=== PATIENT | female | born 1960 | race Caucasian/White ===

== ENCOUNTER → 2016-12-28 | Outpatient (CLI) | payer OTHER ==
[~2016-12-28] MED LIST: FURO-85 PO; GLIP-199 PO; IBUP-1050 PO; LOSA50TA6 PO; METF-384 PO; SIMV40TA2 PO; SITA100T3 PO
[2016-12-28 12:31] LABS: BASO % 0.3 %; BASO ABS # 0.02 K/uL (0-0.2); COMPLETE YES; HEMATOCRIT 44.6 % (37-47); IG% 0.3 %; LYMPH % 33.7 %; LYMPH ABS # 2.18 K/uL (1.2-3.4); MEAN CORPUSCULAR HEMOGLOBIN 30.8 pg (25-34); MEAN PLATELET VOLUME 9.8 fL (7.4-10.4); MONO % 5.6 %; NEUT % 58.1 %; PLATELET COUNT 164 K/uL (130-400); RED BLOOD COUNT 5.07 M/uL (4.2-5.4); WHITE BLOOD COUNT 6.47 K/uL (4.8-10.8)
[2016-12-28 12:56] LABS: ALT/SGPT 26 U/L (12-78); AST/SGOT 12 U/L (15-37); BLOOD UREA NITROGEN 14 mg/dl (7-18); BUN/CREATININE RATIO 15.6 (10-20); CALCIUM 8.8 mg/dl (8.5-10.1); CARBON DIOXIDE 26 mmol/L (21-32); CHLORIDE 103 mmol/L (98-107); CHOLESTEROL 163 mg/dl (0-200); CREATININE 0.92 mg/dl (0.60-1.20); GLUCOSE 286 mg/dl (70-99); POTASSIUM 4.2 mmol/L (3.5-5.1); SODIUM 139 mmol/L (136-145); TRIGLYCERIDES 199 mg/dl (0-150); VERY LOW DENSITY LIPOPROT CALC 40 mg/dl
[2016-12-28 13:08] LABS: ALKALINE PHOSPHATASE 73 U/L (45-117); CHOLESTEROL/HDL RATIO 2.4; HDL CHOLESTEROL 67 mg/dl; LDL CHOLESTEROL CALCULATED 56 mg/dl
[2016-12-28 13:10] LABS: ESTIMATED AVERAGE GLUCOSE 272 mg/dl; HA1C FLAG Normal (Normal)
== END | disposition home or self-care (01) ==
LOC: C.LABBFT 11:09
PROVIDERS: ATTEND Internal Medicine
DX: Z00.00 Encounter for general adult medical examination without abnormal findings (principal); E11.9 Type 2 diabetes mellitus without complications; I10 Essential (primary) hypertension; E78.00 Pure hypercholesterolemia, unspecified; R60.9 Edema, unspecified; K62.5 Hemorrhage of anus and rectum

== ENCOUNTER → 2017-01-05 | Outpatient (CLI) | payer OTHER ==
--- NOTE | 2017-01-05 10:55 | DIAGNOSTIC IMAGING REPORT ---
EXAMINATION: PELVIC ULTRASOUND CLINICAL HISTORY: N95.0 PELVIC PAIN. BLEEDING. COMPARISON STUDY: None FINDINGS: The uterus measured 9.7 cm. 2 small uterine fibroids measuring 3.3 and 2.9 cm.. The endometrial stripe measured moderately prominent at 10 mm. The right ovary measured 2.2 cm normal vascular flow. The left ovary measured not identified possibly due to overlying bowel content. There is no ultrasonographic evidence of ovarian torsion. It should be noted that ovarian torsion can be present with normal Doppler ultrasonographic findings. There was no evidence of pathologic free pelvic fluid. IMPRESSION: 1. Fibroid-type uterus.. 2. Moderate prominence of the endometrium at 10 mm. Given the patient's age, diagnostic considerations must include endometrial hyperplasia versus neoplasm. 3. Otherwise negative study Electronically signed by: Dimitri Bansal M.D. 01/05/2017 10:54 AM Dictated Date/Time: 01/05/2017 10:52 AM
== END | disposition home or self-care (01) ==
LOC: C.ULTR 09:42
PROVIDERS: ATTEND Internal Medicine
DX: N95.0 Postmenopausal bleeding (principal); D25.9 Leiomyoma of uterus, unspecified

== ENCOUNTER → 2017-05-26 | Outpatient (CLI) | payer OTHER | END | disposition home or self-care (01) | LOC: C.PAPS 11:55 | PROVIDERS: ATTEND Obstetrics & Gynecology | DX: N95.0 Postmenopausal bleeding (principal) ==

== ENCOUNTER → 2017-06-11 | Outpatient (CLI) | payer OTHER ==
[2017-06-11 18:43] LABS: ALKALINE PHOSPHATASE 73 U/L (45-117); ALT/SGPT 32 U/L (12-78); AST/SGOT 20 U/L (15-37); BLOOD UREA NITROGEN 15 mg/dl (7-18); BUN/CREATININE RATIO 14.6 (10-20); CALCIUM 9.6 mg/dl (8.5-10.1); CARBON DIOXIDE 30 mmol/L (21-32); CHLORIDE 103 mmol/L (98-107); GLUCOSE 352 mg/dl (70-99); POTASSIUM 4.8 mmol/L (3.5-5.1); SODIUM 140 mmol/L (136-145)
[2017-06-11 18:54] LABS: BETA-HYDROXYBUTYRATE 1.73 mg/dL (0.2-2.81)
[2017-06-12 06:34] LABS: ESTIMATED AVERAGE GLUCOSE 226 mg/dl; HA1C FLAG Normal (Normal)
== END | disposition home or self-care (01) ==
LOC: C.LABBFT 10:33
PROVIDERS: ATTEND Internal Medicine
DX: E11.9 Type 2 diabetes mellitus without complications (principal)

== ENCOUNTER 2017-07-12 08:35 | Day surgery (SDC) | payer OTHER ==
[2017-07-02 13:31] VITALS: BMI 45.0
--- NOTE | 2017-07-02 13:59 | PAT Medication Instructions ---
Service Date Jul 02, 2017. Current Home Medication List Furosemide (Lasix), 20 MG PO QAM Glipizide (Glipizide Er), 20 TAB PO QAM Ibuprofen (Advil), 200 MG PO PRN Losartan Potassium (Cozaar), 50 MG PO QAM Metformin Hcl (Glucophage), 1,000 MG PO BID Simvastatin (Zocor), 40 MG PO QPM Sitagliptin Phosphate (Januvia), 100 MG PO QAM Medication Instructions For Your Scheduled Surgery - Check with surgeon for instructions: Ibuprofen (Advil), 200 MG PO PRN - Hold the following medications 48 hours prior to surgery: Metformin Hcl (Glucophage), 1,000 MG PO BID - Hold the following medications the morning of surgery: Furosemide (Lasix), 20 MG PO QAM Glipizide (Glipizide Er), 20 TAB PO QAM Losartan Potassium (Cozaar), 50 MG PO QAM Sitagliptin Phosphate (Januvia), 100 MG PO QAM - Take the following medications as scheduled the night before surgery: Simvastatin (Zocor), 40 MG PO QPM If you have any questions please call us at [phone] or [phone] or [phone]
[2017-07-02 14:55] LABS: BASO % 0.1 %; BASO ABS # 0.01 K/uL (0-0.2); COMPLETE YES; EOS % 1.7 %; HEMATOCRIT 43.5 % (37-47); IG% 0.3 %; LYMPH % 26.6 %; LYMPH ABS # 2.05 K/uL (1.2-3.4); MEAN CELL VOLUME 90.1 fL (80-100); MEAN CORPUSCULAR HEMOGLOBIN 30.6 pg (25-34); MEAN PLATELET VOLUME 9.7 fL (7.4-10.4); MONO % 5.2 %; NEUT % 66.1 %; PLATELET COUNT 189 K/uL (130-400); RED BLOOD COUNT 4.83 M/uL (4.2-5.4)
[2017-07-02 14:58] LABS: URINE APPEARANCE CLEAR (CLEAR); URINE BILIRUBIN NEG (NEG); URINE COLOR YELLOW; URINE NITRITE NEG (NEG); URINE SPECIFIC GRAVITY 1.027 (1.000-1.030); UROBILINOGEN NEG (NEG)
[2017-07-02 15:03] LABS: MANUAL MICROSCOPIC REQUIRED? NO; REVIEW REQ? NO
[2017-07-02 15:50] LABS: BUN/CREATININE RATIO 16.3 (10-20); CALCIUM 9.3 mg/dl (8.5-10.1); CREATININE 0.93 mg/dl (0.60-1.20); POTASSIUM 4.6 mmol/L (3.5-5.1)
[2017-07-03 06:56] LABS: ESTIMATED AVERAGE GLUCOSE 226 mg/dl; HA1C FLAG Normal (Normal)
[~2017-07-12] VITALS: Ht 154.9 cm; Wt 109.0 kg
[~2017-07-12 08:35] MED LIST changes: +LACTATED RINGER'S 1000ML 1,000 ML IV SCH
[2017-07-12 09:01] VITALS: BP 140/71; PULSE 96; TEMP 36.9; O2SAT 100; Ht 154.9 cm; Wt 109.0 kg
[2017-07-12] MEDS ORDERED: FENTANYL CITRATE INJ 50 MCG/1 ML 2 ML VIAL ONE (09:39)
[2017-07-12] MEDS ORDERED: MIDAZOLAM HCL 1 MG/ML 2ML VIAL ONE (09:39)
[2017-07-12] MEDS ORDERED: DEXAMETHASONE SOD INJ 4 MG/ML VIAL ONE (09:39)
[2017-07-12] MEDS ORDERED: ONDANSETRON INJ 2 MG/ML 2 ML VIAL ONE (09:39)
[2017-07-12] MEDS ORDERED: LIDOCAINE HCL 2% 2 ML VIAL (20MG/ML) ONE (09:39)
[2017-07-12] MEDS ORDERED: PROPOFOL IV EMULSION 10 MG/ML 20 ML VIAL IV ONE (09:39)
--- NOTE | 2017-07-12 09:39 | History & Physical Bridge Note ---
H&P Re-Evaluation Bridge Note: I have examined the patient, reviewed the History & Physical and in the interval since the performance of the History & Physical I have noted the following changes of clinical significance: No changes noted
[2017-07-12] MEDS ORDERED: ONDANSETRON INJ 2 MG/ML 2 ML VIAL IV PRN ×2 (10:15→11:00)
[2017-07-12] MEDS ORDERED: EpHEDrine SULFATE INJ 50 MG/ML AMP IV PRN (10:15)
[2017-07-12] MEDS ORDERED: FENTANYL CITRATE INJ 50 MCG/1 ML 2 ML VIAL IV PRN (10:15)
[2017-07-12] MEDS ORDERED: ATROPINE SULFATE 0.1 MG/ML 5ML SYR IV PRN (10:15)
[2017-07-12] MEDS ORDERED: METOCLOPRAMIDE HCL INJ 5 MG/ML 2 ML VIAL ONE (10:20)
[2017-07-12] MEDS ORDERED: SODIUM CHLORIDE 0.9% 1000ML 1,000 ML IV SCH (10:48)
--- NOTE | 2017-07-12 10:49 | [facility] Post Operative Brief Note ---
Immediate Operative Summary Operative Date Jul 12, 2017. Pre-Operative Diagnosis Postmenopausal bleeding Post-Operative Diagnosis Postmenopausal bleeding Procedure(s) Performed Hysteroscopy,Dilation and Currettage, Polypectomy Surgeon Dr. Linh Guardado DO Utility System Operator Surgeon(s) None Estimated Blood Loss 5ml Findings Multiple endometrial polyps. Uterus sounded to 9cm. Specimens A. Endocervical currettings B. Endometrial polyp Drains bladder drained prior to procedure Anesthesia general Complication(s) None Disposition Recovery Room / PACU
--- NOTE | 2017-07-12 10:51 | Discharge Instructions ---
Discharge Instructions Date of Service Jul 12, 2017. Visit Reason for Visit: Post Menopausal Bleeding Discharge Discharge Diagnosis / Problem: endometrial polyps Discharge Goals Goal(s): Diagnostic testing, Therapeutic intervention Activity Recommendations Activity Limitations: per Instructions/Follow-up section Anesthesia . Post Anesthesia Instructions: If you have had General Anesthesia or IV Sedation: * Do not drive today. * Resume driving when surgeon permits. * Do not make important decisions or sign legal documents today. * Call surgeon for: 1. Temperature elevations greater than 101 degrees F. 2. Uncontrollable pain. 3. Excessive bleeding. 4. Persistent nausea and vomiting. 5. Medication intolerance (nausea, vomiting or rash). * For nausea and vomiting use only clear liquids such as: tea, soda, bouillon until nausea subsides, then gradually increase diet as tolerated. * If you have any concerns or questions, call your surgeon's office. If physician is unavailable and it is an emergency, call 911 or go to the nearest emergency room. . Instructions / Follow-Up Instructions / Follow-Up ACTIVITY RECOMMENDATIONS: * Avoid tampons, douching, hot tubs, pools, and intercourse until bleeding has stopped. * May shower as usual. * No strenuous activity for 24-48 hours. After 24-48 hours, you may do anything you feel like doing (driving and sports are okay). SPECIAL CARE INSTRUCTIONS: Special Diet: * Mild nausea may occur in the immediate post-operative period. * Take clear liquids such as tea, cola or bouillon until all nausea has subsided; you may then resume your normal diet. Special Care: * Light bleeding and vaginal spotting can last from a few days to 3-4 weeks. Call your doctor if bleeding becomes heavier than the heaviest part of your period. * Check your temperature twice a day for one week. If it goes above 100.4 degrees Fahrenheit (38.0 Celsius), notify your doctor. * Call your doctor's office for an appointment for 6 weeks after your surgery. FOLLOW-UP VISIT: Call your doctor's office for an appointment for 6 weeks after your surgery. Diet Recommendations Recommended Home Diet: resume previous diet Procedures Procedures Performed: Hysteroscopy,Dilation and Currettage, Polypectomy Pending Studies Studies pending at discharge: yes List of pending studies: pathology Medical Emergencies . Who to Call and When: Medical Emergencies: If at any time you feel your situation is an emergency, please call 911 immediately. . Non-Emergent Contact Non-Emergency issues call your: Primary Care Provider, Ticket Manager . . "Provider Documentation" section prepared by Linh Guardado. .
[2017-07-12] MEDS ORDERED: PROMETHAZINE HCL INJ 25 MG in SODIUM CHLORIDE 0.9% 50ML 50 ML IV PRN (11:00)
[2017-07-12] MEDS ORDERED: KETOROLAC TROMETHAMINE 30 MG/ML VIAL IV. PRN (11:00)
[2017-07-12] MEDS ORDERED: OXYCODONE/ACETAMINOPHEN 5-325 TAB PO PRN ×2 (11:00)
[2017-07-12 11:40] VITALS: BP 146/78; PULSE 90; TEMP 36.6; O2SAT 99
--- NOTE | 2017-07-12 11:47 | Anesthesiology Progress Note ---
Anesthesia Post Op Note Date & Time Jul 12, 2017 at 11:47 Vital Signs Pain Intensity: 0 Vital Signs Past 12 Hours Date Time Temp Pulse Resp B/P (MAP) Pulse Ox O2 Delivery O2 Flow Rate FiO2 07/12/17 11:31 110/68 07/12/17 11:30 82 15 07/12/17 11:30 82 15 93 07/12/17 11:26 102/85 07/12/17 11:25 85 13 97 07/12/17 11:25 85 13 07/12/17 11:21 108/75 07/12/17 11:21 36.3 86 16 108/75 97 Room Air 07/12/17 11:20 88 17 07/12/17 11:20 89 17 93 07/12/17 11:16 123/73 07/12/17 11:15 96 16 07/12/17 11:15 94 16 96 07/12/17 11:11 127/76 07/12/17 11:10 97 15 07/12/17 11:10 97 15 94 07/12/17 11:06 121/75 07/12/17 11:05 96 16 100 07/12/17 11:05 96 16 07/12/17 11:01 118/77 07/12/17 11:00 95 13 99 07/12/17 11:00 95 13 07/12/17 10:56 116/74 07/12/17 10:55 97 21 07/12/17 10:55 97 21 98 07/12/17 10:54 119/72 07/12/17 10:50 92 12 07/12/17 10:50 92 12 96 07/12/17 10:46 110/57 07/12/17 10:45 36.7 95 16 110/57 95 Mask 10 07/12/17 09:01 36.9 96 18 140/71 (94) 100 Room Air Notes Mental Status: alert / awake / arousable, participated in evaluation Pt Amnestic to Procedure: Yes Nausea / Vomiting: adequately controlled Pain: adequately controlled Airway Patency, RR, SpO2: stable & adequate BP & HR: stable & adequate Hydration State: stable & adequate Anesthetic Complications: no major complications apparent
[2017-07-12 12:10] VITALS: BP 122/74; PULSE 82; O2SAT 97
[2017-07-12 12:34] VITALS: BP 126/76; PULSE 78; TEMP 36.5; O2SAT 98
--- NOTE | 2017-07-12 13:52 | OPERATIVE REPORT ---
DATE OF OPERATION: 07/12/2017 PREOPERATIVE DIAGNOSIS: Postmenopausal bleeding. POSTOPERATIVE DIAGNOSES: Same plus endometrial polyps. PROCEDURES PERFORMED: Hysteroscopy, dilation and curettage and polypectomy. SURGEON: Linh Guardado DO. SENIOR GRAPHIC DESIGNER: None. ESTIMATED BLOOD LOSS: 5 mL. FINDINGS: Multiple endometrial polyps. Uterus sounded to 9 cm. SPECIMENS: Endocervical curettings and endometrial polyp. DRAINS: Bladder drained prior to procedure. ANESTHESIA: General. COMPLICATIONS: None. DISPOSITION: Stable and good to recovery room. INDICATIONS FOR PROCEDURE: The patient is a 57-year-old who experienced postmenopausal bleeding x3 episodes and was referred by her primary care for workup and sampling. Endometrial biopsy was attempted in the office. This was unsuccessful due to the patient being unable to tolerate due to pain and therefore a hysteroscopy, D&C was recommended in the operating room. DESCRIPTION OF PROCEDURE: The patient was seen in the preoperative holding area, where risks, benefits, and alternatives to surgery were reviewed. She elected to proceed with surgery. All questions were answered. She had previously signed informed consent in the office under no duress. She was taken to the operating room, where general anesthesia was administered. She was placed in a dorsal lithotomy position [facility]. Timeout was confirmed. She was prepared and draped in the usual sterile fashion. The bladder was drained. A weighted speculum was placed in the vagina. Cervix was visualized and the anterior lip was grasped with a single tooth tenaculum. A fractional D&C was performed using a Kevorkian curette to obtain a cervical sample. Next, the cervix was gently dilated to admit a hysteroscope. Hysteroscope was inserted and the above noted findings were seen. The hysteroscope was withdrawn and the MyoSure scope was reinserted and the MyoSure device was used to perform polypectomy and obtain endometrial curettings. This was then removed. Another pass was undertaken with a sharp curette. This was sent in conjunction with the endometrial polyp for pathology. All instruments were removed from the vagina. Excellent hemostasis was noted. The patient was awoken from anesthesia and was taken to the recovery area in stable and good condition. I attest to the content of the Intraoperative Record and any orders documented therein. Any exception s are noted below.
== END 2017-07-12 12:38 | disposition home or self-care (01) ==
LOC: C.ACU 08:35
PROVIDERS: ATTEND Obstetrics & Gynecology
DX: N84.0 Polyp of corpus uteri (principal); I10 Essential (primary) hypertension; E78.00 Pure hypercholesterolemia, unspecified; E11.9 Type 2 diabetes mellitus without complications; M51.36 Other intervertebral disc degeneration, lumbar region; Z79.84 Long term (current) use of oral hypoglycemic drugs; Z79.899 Other long term (current) drug therapy

== ENCOUNTER → 2017-11-25 | Outpatient (CLI) | payer OTHER ==
[~2017-11-25] MED LIST changes: -LACTATED RINGER'S 1000ML 1,000 ML IV SCH
--- NOTE | 2017-12-02 15:53 | MAMMOGRAPHY REPORT ---
BILATERAL DIGITAL SCREENING MAMMOGRAM TOMOSYNTHESIS WITH CAD: 11/25/2017 CLINICAL HISTORY: Routine screening. Patient has no complaints. TECHNIQUE: Breast tomosynthesis in addition to standard 2D mammography was performed. Current study was also evaluated with a Computer Aided Detection (CAD) system. COMPARISON: Comparison is made to exams dated: 09/16/2015 mammogram, 08/14/2013 mammogram, 02/14/2010 ma mmogram, and 02/29/2008 mammogram - [facility]. BREAST COMPOSITION: The tissue of both breasts is almost entirely fatty. FINDINGS: No suspicious masses, calcifications, or areas of architectural distortion are noted in ei ther breast. There has been no significant interval change compared to prior exams. Scattered bilater al benign-appearing calcifications are not significantly changed. Low-density circumscribed benign-a ppearing 10 mm mass within the left upper outer quadrant is stable compared to multiple prior exams. IMPRESSION: ACR BI-RADS CATEGORY 2: BENIGN There is no mammographic evidence of malignancy. A 1 year screening mammogram is recommended. The pa tient will receive written notification of the results. Approximately 10% of breast cancers are not detected with mammography. A negative mammographic report should not delay biopsy if a clinically suggestive mass is present. Yara Yoo M.D. ah/:12/02/2017 15:11:02 Oven Drier Tender: Analia HARVEY)(Kareem), [facility] letter sent: Normal 1/2 BI-RADS Code: ACR BI-RADS Category 2: Benign
== END | disposition home or self-care (01) ==
LOC: C.MAMM 09:42
PROVIDERS: ATTEND Obstetrics & Gynecology
DX: Z12.31 Encounter for screening mammogram for malignant neoplasm of breast (principal)

== ENCOUNTER → 2017-12-09 | Outpatient (CLI) | payer OTHER ==
[2017-12-09 17:35] LABS: ALBUMIN 3.7 gm/dl (3.4-5.0); ALT/SGPT 29 U/L (12-78); AST/SGOT 14 U/L (15-37); BLOOD UREA NITROGEN 15 mg/dl (7-18); CALCIUM 9.3 mg/dl (8.5-10.1); CARBON DIOXIDE 31 mmol/L (21-32); CREATININE 0.92 mg/dl (0.60-1.20); GLUCOSE 251 mg/dl (70-99); POTASSIUM 4.2 mmol/L (3.5-5.1); SODIUM 137 mmol/L (136-145)
[2017-12-09 17:38] LABS: ALKALINE PHOSPHATASE 66 U/L (45-117); CHOLESTEROL 142 mg/dl (0-200); LDL CHOLESTEROL CALCULATED 52 mg/dl; TOTAL PROTEIN 7.6 gm/dl (6.4-8.2)
[2017-12-10 05:55] LABS: HEMOGLOBIN A1C 8.7 % (4.5-5.6)
== END | disposition home or self-care (01) ==
LOC: C.LABBFT 11:23
PROVIDERS: ATTEND Internal Medicine
DX: Z00.00 Encounter for general adult medical examination without abnormal findings (principal); Z11.59 Encounter for screening for other viral diseases; E11.9 Type 2 diabetes mellitus without complications; E78.00 Pure hypercholesterolemia, unspecified; I10 Essential (primary) hypertension